=== PATIENT | male | born 1960 | race Caucasian/White ===

== ENCOUNTER → 2023-10-31 08:45 | Outpatient (REF) | payer OTHER, SELFPAY | LOC: MRI 3T 08:45 | PROVIDERS: ATTENDING PHYSICIAN Psychiatry & Neurology Neurology; FAMILY PHYSICIAN Physician Assistant | DX: G43.109 Migraine with aura, not intractable, without status migrainosus (principal) | CPT/HCPCS: 70553; A9575 ==